=== PATIENT | female | born 1965 | race American Indian/Alaskan Native ===

== ENCOUNTER 2018-02-05 16:43 | Emergency (ER) | payer OTHER ==
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
[2018-02-05 17:30] VITALS: RESP 18; TEMP 98.3; O2SAT 100
[2018-02-05 17:45] VITALS: BMI 27.8
[2018-02-05 20:32] VITALS: BP 156/82; PULSE 56
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
== END 2018-02-05 20:41 | disposition home or self-care (01) ==
LOC: ED 16:43
DX: M54.2 Cervicalgia (principal); R51 Headache; R94.8 Abnormal results of function studies of other organs and systems; I10 Essential (primary) hypertension; M32.9 Systemic lupus erythematosus, unspecified